=== PATIENT | female | born 1980 | race Caucasian/White ===

== ENCOUNTER 2016-12-17 17:02 | Emergency (ER) | payer MEDICAID ==
[2016-12-17] MEDS ORDERED: Ketorolac 30 MG/ML SDV IVPUSH ONE (18:04)
[2016-12-17] MEDS ORDERED: methylPREDNISolone Sodium Succinate 125 MG/2 ML SDV IVPUSH ONE (18:04)
[2016-12-17] MEDS ORDERED: Albuterol/Ipratropium 3.0-0.5 MG/3 ML Neb Soln NEB ONE (18:04)
[2016-12-17] MEDS ORDERED: Ondansetron 4 MG/2 ML SDV IVPUSH ONE (18:04)
[2016-12-17] MEDS ORDERED: Sodium Chloride 0.9% 10 ML Syringe FLUSH PRN (18:04)
[2016-12-17] MEDS ORDERED: Sodium Chloride 0.9% 1,000 ML IV ONE (18:04)
[2016-12-17] MEDS ORDERED: Codeine/guaiFENesin 100-10 MG/5 ML Syrup 5 ML Cup PO ONE (18:05)
--- NOTE | 2016-12-17 18:06 | EDM.PDOC ---
ED HPI GENERAL MEDICAL PROBLEM - General Chief Complaint: ENT Problem Stated Complaint: COUGH Time Seen by Provider: 12/17/16 17:36 Source of Information: Reports: Patient History Limitations: Reports: No limitations - History of Present Illness INITIAL COMMENTS - FREE TEXT/NARRATIVE: 2 week history of feeling ill. Cough, body aches, sore throat, post-tussive emesis, congestion. No GI complaints otherwise. Denies changes. Has hot flashes and chills still. Son was ill at home but improved. Cough is not improving. Went to a clinic yesterday and was strep tested, no other testing performed. Rapid strep negative. No meds prescribed. OTC meds have not helped, including cold preparations and mucinex. No weight changes. No other HEENT complaints. ROS otherwise negative. Throat Pain Score (Numeric/FACES): 9 - Related Data Allergies Allergy/AdvReac Type Severity Reaction Status Date / Time latex Allergy Itching Verified 12/17/16 17:12 strawberry Allergy Hives Verified 12/17/16 17:12 Home Meds: Home Meds Benzonatate [Tessalon Perles] 200 mg PO TID PRN #50 cap 12/17/16 [Rx] FLUoxetine HCl [Prozac] 10 mg PO DAILY 12/17/16 [History] Ketorolac [Toradol] 10 mg PO Q6H PRN #25 tablet 12/17/16 [Rx] Nitrofurantoin Clinch/Macrocryst [Macrobid] 100 mg PO BID #10 cap 12/17/16 [Rx] medroxyPROGESTERone Acetate [Depo-Provera] 150 mg IM Q90D 12/17/16 [History] Past Medical History Psychiatric History: Reports: Anxiety, Depression ED ROS GENERAL - Review of Systems Review Of Systems: ROS reveals no pertinent complaints other than HPI. ED EXAM, GENERAL - Physical Exam Exam: See Below Exam Limited By: No limitations General Appearance: alert, no apparent distress, other (appears fatigued) Eye Exam: bilateral eye: EOMI, PERRL Ears: normal external exam, normal canal, other (Right TM clear, Left TM almost completely blocked by hardened cerumen) Nose: normal inspection Throat/Mouth: Normal inspection, Normal lips, Normal oropharynx, Normal voice, No airway compromise Head: atraumatic, normocephalic Neck: supple, full range of motion, lymphadenopathy (L) (mild), lymphadenopathy (R) (mild) Respiratory/Chest: no respiratory distress, lungs clear, normal breath sounds, no accessory muscle use, chest non-tender Cardiovascular: normal peripheral pulses, no edema, no murmur, tachycardia Peripheral Pulses: 2+: radial (L), radial (R) GI/Abdominal: normal bowel sounds, soft, non tender (Female) Exam: Deferred Rectal (Female) Exam: Deferred Back Exam: normal inspection Extremities: normal range of motion, non-tender, no pedal edema, slow capillary refill (3-4 seconds) Neurological: alert, oriented, CN II-XII intact, normal cognition, normal gait, no motor/sensory deficits Psychiatric: normal affect, normal mood Skin Exam: Warm, Dry, Intact, Normal color, No rash Course - Vital Signs Last Recorded V/S: Last Vital Signs Temp 37.4 C 12/17/16 19:21 Pulse 104 H 12/17/16 19:21 Resp 18 12/17/16 19:21 BP 114/95 H 12/17/16 19:21 Pulse Ox 97 12/17/16 19:21 - Orders/Labs/Meds Orders: Active Orders 24 hr Category Date Time Status RT Aerosol Therapy [RC] ASDIRECTED Care 12/17/16 18:04 Ordered Chest 2V [CR] Stat Exams 12/17/16 17:15 Taken Sodium Chloride 0.9% [Saline Flush] Med 12/17/16 18:04 Ordered 10 ml FLUSH ASDIRECTED PRN Saline Lock Insert [OM.PC] Routine Oth 12/17/16 18:04 Ordered Medication Orders Sodium Chloride (Saline Flush) 10 ml FLUSH ASDIRECTED PRN PRN Reason: Keep Vein Open Labs: Laboratory Tests 12/17/16 12/17/16 Range/Units 17:25 18:30 WBC 3.8 L (4.0-10.2) K/uL RBC 5.03 (3.77-5.09) M/uL Hgb 14.6 (11.7-15.5) g/dL Hct 43.7 (34.0-46.0) % MCV 86.9 (84.0-98.0) fL MCH 29.0 (28.2-33.3) pg MCHC 33.4 (31.7-36.0) g/dL RDW 13.4 (11.2-14.1) % Plt Count 203 (150-350) K/uL Neut % (Auto) 66.0 (45.0-80.0) % Lymph % (Auto) 24.7 (10.0-50.0) % Clinch % (Auto) 8.5 (2.0-14.0) % Eos % (Auto) 0.5 (0.0-5.0) % Baso % (Auto) 0.3 (0.0-2.0) % Neut # 2.48 (1.40-7.00) K/uL Lymph # 0.93 (0.50-3.50) K/uL Clinch # 0.32 (0.00-1.00) K/uL Eos # 0.02 (0.00-0.50) K/uL Baso # 0.01 (0.00-0.20) K/uL Specimen Type Urinblad Urine Color Yellow Urine Appearance Clear Urine pH 5.5 (5.0-9.0) Ur Specific [place] 1.025 (1.005-1.030) Urine Protein 30 H (NEGATIVE) mg/dL Urine Glucose (UA) Negative (NEGATIVE) mg/dL Urine Ketones 15 H (NEGATIVE) mg/dL Urine Occult Blood Moderate H (NEGATIVE) Urine Nitrite Negative (NEGATIVE) Urine Bilirubin Small H (NEGATIVE) Urine Urobilinogen 1.0 (0.2-1.0) E.U./dL Ur Leukocyte Esterase Trace H (NEGATIVE) Urine RBC 5-10 H /HPF Urine WBC 10-20 H /HPF Ur Epithelial Cells Few /LPF Urine Bacteria Few (NONE TO FEW) /HPF Meds: Medications Generic Name Dose Route Start Last Admin Trade Name Freq PRN Reason Stop Dose Admin Sodium Chloride 10 ml 12/17/16 18:04 Saline Flush FLUSH ASDIRECTED PRN Keep Vein Open Discontinued Medications Generic Name Dose Route Start Last Admin Trade Name Freq PRN Reason Stop Dose Admin Albuterol/Ipratropium 3 ml 12/17/16 18:04 12/17/16 18:17 Duoneb 3.0-0.5 Mg/3 Ml NEB 12/17/16 18:05 3 ml ONETIME ONE Administration Guaifenesin/Codeine Phosphate 5 ml 12/17/16 18:05 12/17/16 18:16 Robitussin Ac PO 12/17/16 18:06 5 ml ONETIME ONE Administration Sodium Chloride 1,000 mls @ 999 mls/hr 12/17/16 18:04 12/17/16 18:14 Normal Saline IV 12/17/16 19:04 999 mls/hr .BOLUS ONE Administration Ketorolac Tromethamine 30 mg 12/17/16 18:04 12/17/16 18:16 Toradol IVPUSH 12/17/16 18:05 30 mg ONETIME ONE Administration Methylprednisolone Sodium Succinate 125 mg 12/17/16 18:04 12/17/16 18:16 Solu-Medrol IVPUSH 12/17/16 18:05 125 mg ONETIME ONE Administration Ondansetron HCl 4 mg 12/17/16 18:04 12/17/16 18:17 Zofran IVPUSH 12/17/16 18:05 4 mg ONETIME ONE Administration - Radiology Interpretation Free Text/Narrative:: No acute changes noted on chest film - Re-Assessments/Exams Free Text/Narrative Re-Assessment/Exam: 12/17/16 18:07 Patient appears dehydrated. Will give fluid bolus as well as neb/Solumedrol/ Zofran/Toradol. Influenza ordered. WBC lower at 3.8. Free Text/Narrative Re-Assessment/Exam: 12/17/16 19:29 Influenza B + Discussed diagnosis with patient along with self care at home. Mild elevation of wbc in urine may indicate early UTI. Will send patient home with ER stock Albuterol MDI as well as Promethazine/codeine syrup. 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 She feels overall improved since receiving the fluid. Toradol helped with the aches. Extensive precautions given to patient prior to discharge. Departure - Departure Time of Disposition: 19:32 Disposition: Home, Self-Care 01 Condition: good Clinical Impression: Influenza B, Dehydration UTI (urinary tract infection) Qualifiers: Urinary tract infection type: acute cystitis Hematuria presence: without hematuria Qualified Code(s): N30.00 - Acute cystitis without hematuria Prescriptions: Benzonatate [Tessalon Perles] 200 mg PO TID PRN #50 cap PRN Reason: Cough Ketorolac [Toradol] 10 mg PO Q6H PRN #25 tablet PRN Reason: Pain Nitrofurantoin Clinch/Macrocryst [Macrobid] 100 mg PO BID #10 cap Instructions: How to Use an Inhaler, [id number], Influenza, Adult, Easy-to- Read Forms: ED Department Discharge Additional Instructions: Stay home. Get plenty of rest and drink water to stay hydrated. If you start feeling more ill, please get re-evaluated. High fevers, shortness of breath, dehydration, etc. Use inhaler 1-2 puffs every 4-6 hours to help with cough. Make certain to use it 4 times a day for the next week or more. Follow up with your primary doctor if you need refills for cough medications. - My Orders Last 24 Hours: My Active Orders 12/17/16 17:15 Chest 2V [CR] Stat 12/17/16 18:04 RT Aerosol Therapy [RC] ASDIRECTED Sodium Chloride 0.9% [Saline Flush] 10 ml FLUSH ASDIRECTED PRN Saline Lock Insert [OM.PC] Routine - Assessment/Plan Last 24 Hours: My Active Orders 12/17/16 17:15 Chest 2V [CR] Stat 12/17/16 18:04 RT Aerosol Therapy [RC] ASDIRECTED Sodium Chloride 0.9% [Saline Flush] 10 ml FLUSH ASDIRECTED PRN Saline Lock Insert [OM.PC] Routine
[2016-12-17 19:22] VITALS: BP 114/95
== END 2016-12-17 19:55 | disposition home or self-care (01) ==
LOC: LL.ED 17:02
DX: J10.1 Influenza due to other identified influenza virus with other respiratory manifestations (principal); E86.0 Dehydration; Z91.040 Latex allergy status; Z79.899 Other long term (current) drug therapy
CPT/HCPCS: 36415; 71020; 81001; 85025; 87086; 87804; 94640; 96361; 96374; 96375; 99283; A9270; J1885; J2405; J2930; J7030; 94664

== ENCOUNTER 2017-11-21 22:24 | Emergency (ER) | payer MEDICAID ==
[2017-11-21 22:38] VITALS: BP 154/94
--- NOTE | 2017-11-21 23:15 | EDM.PDOC ---
ED HPI GENERAL MEDICAL PROBLEM - General Chief Complaint: General Stated Complaint: Mouse bite to right thumb Time Seen by Provider: 11/21/17 22:30 Source of Information: Reports: Patient History Limitations: Reports: No Limitations - History of Present Illness INITIAL COMMENTS - FREE TEXT/NARRATIVE: Patient is a 37-year-old who seen in the emergency room status post Mouses bite patient states that the mouse got caught on a sticky trap and better when she was transporting mouse is in a bag at home at this time we instruct the patient to place mouse in jar and refrigerated mouse will be sent to [facility] Thursday for confirmation of rabies status prior to treating the patient. [facility] will be contacted Thursday morning for disposition of patient Onset: Today Duration: Minutes: Location: Reports: Upper Extremity, Right (Thumb) Severity: Mild Improves with: Reports: None Worsens with: Reports: None Context: Reports: Other ( Animal bite) Associated Symptoms: Reports: No Other Symptoms Treatments TELEPHONE RECORDER: Reports: Home Treatments, Other (see below) Other Treatments TELEPHONE RECORDER: Flushed with hydrogen peroxide, applied triple antibiotic ointment - Related Data Allergies Allergy/AdvReac Type Severity Reaction Status Date / Time latex Allergy Itching Verified 11/21/17 22:28 strawberry Allergy Hives Verified 11/21/17 22:28 Home Meds: Home Meds FLUoxetine HCl [Prozac] 10 mg PO DAILY 12/17/16 [History] medroxyPROGESTERone Acetate [Depo-Provera] 150 mg IM Q90D 12/17/16 [History] 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: Psychiatric History: Reports: Anxiety, Depression - Infectious Disease History Infectious Disease History: Reports: Chicken Pox - Past Surgical History Female Surgical History: Reports: Tubal Ligation Social & Family History - Tobacco Use Smoking Status *Q: Never Smoker Years of Tobacco use: 14 Packs/Tins Daily: 1 Used Tobacco, but Quit: Yes Month Tobacco Last Used: 1 Second Hand Smoke Exposure: No - Caffeine Use Caffeine Use: Reports: None Other Caffeine Use: Quit drinking caffeine a month ago - Recreational Drug Use Recreational Drug Use: No ED ROS GENERAL - Review of Systems Review Of Systems: See Below Constitutional: Reports: No Symptoms HEENT: Reports: No Symptoms Respiratory: Reports: No Symptoms Cardiovascular: Reports: No Symptoms Endocrine: Reports: No Symptoms GI/Abdominal: Reports: No Symptoms : Reports: No Symptoms Musculoskeletal: Reports: No Symptoms Skin: Reports: No Symptoms Neurological: Reports: No Symptoms Psychiatric: Reports: No Symptoms Hematologic/Lymphatic: Reports: No Symptoms Immunologic: Reports: No Symptoms ED EXAM, GENERAL - Physical Exam Exam: See Below Exam Limited By: No Limitations General Appearance: Alert, WD/WN, No Apparent Distress Ears: Normal External Exam, Normal Canal, Hearing Grossly Normal, Normal TMs Ear Exam: Bilateral Ear: Auricle Normal, Canal Normal, TM normal Nose: Normal Inspection, Normal Mucosa, No Blood Throat/Mouth: Normal Inspection, Normal Lips, Normal Teeth, Normal Gums, Normal Oropharynx, Normal Voice, No Airway Compromise Head: Atraumatic, Normocephalic Neck: Normal Inspection, Supple, Non-Tender, Full Range of Motion Respiratory/Chest: No Respiratory Distress, Lungs Clear, Normal Breath Sounds, No Accessory Muscle Use, Chest Non-Tender Cardiovascular: Normal Peripheral Pulses, Regular Rate, Rhythm, No Edema, No Gallop, No JVD, No Murmur, No Rub GI/Abdominal: Normal Bowel Sounds, Soft, Non-Tender, No Organomegaly, No Distention, No Abnormal Bruit, No Mass (Female) Exam: Deferred Rectal (Female) Exam: Deferred Back Exam: Normal Inspection, Full Range of Motion, NT Extremities: Other (Puncture wound right thumb area) Neurological: Alert, Oriented, CN II-XII Intact, Normal Cognition, Normal Gait, Normal Reflexes, No Motor/Sensory Deficits Psychiatric: Normal Affect, Normal Mood Skin Exam: Warm, Dry, Normal Color, No Rash, Wound/Incision (Puncture wound right thumb) Lymphatic: No Adenopathy Course - Vital Signs Last Recorded V/S: Last Vital Signs Temp 98.3 F 11/21/17 22:45 Pulse 70 11/21/17 22:45 Resp 18 11/21/17 22:45 BP 154/94 H 11/21/17 22:45 Pulse Ox 99 11/21/17 22:45 Departure - Departure Time of Disposition: 23:18 Disposition: Home, Self-Care 01 Condition: Good Clinical Impression: Bitten by mouse, initial encounter - Discharge Information Referrals: Zacarias Gardner MD [Primary Care Provider] - Forms: ED Department Discharge Care Plan Goals: Patient will be started on Augmentin 875 twice a day for 10 days we will go ahead and send mild to [facility] for evaluation prior to starting rabies vaccine and: Immunoglobin.
== END 2017-11-21 23:40 | disposition home or self-care (01) ==
LOC: LL.ED 22:24
DX: S61.051A Open bite of right thumb without damage to nail, initial encounter (principal); Z91.018 Allergy to other foods; Z91.040 Latex allergy status; Z79.899 Other long term (current) drug therapy; W53.01XA Bitten by mouse, initial encounter; Y92.009 Unspecified place in unspecified non-institutional (private) residence as the place of occurrence of the external cause
CPT/HCPCS: 99283

== ENCOUNTER 2023-07-29 19:20 | Emergency (ER) | payer BC, MEDICAID ==
[2023-07-29 19:24] VITALS: BP 166/91; PULSE 68
[2023-07-29] MEDS: Diphtheria,Pertussis(Acell),Tetanus Vaccine 0.5 ML Syringe IM ONE (20:04)
== END 2023-07-29 20:11 | disposition home or self-care (01) ==
LOC: MERGE 19:20 → LL.ED 19:20
DX: S01.81XA Laceration without foreign body of other part of head, initial encounter (principal); I10 Essential (primary) hypertension; Z91.018 Allergy to other foods; Z91.040 Latex allergy status; W01.198A Fall on same level from slipping, tripping and stumbling with subsequent striking against other object, initial encounter
CPT/HCPCS: 12011; 90471; 90715; 99282-25